=== PATIENT | female | born 1965 | race Caucasian/White ===

== ENCOUNTER 2021-06-13 09:32 | Emergency (ER) | payer OTHER, SELFPAY ==
--- NOTE | 2021-06-13 | ECG_ITS ---
Test Reason : CHEST PAIN Blood Pressure : / mmHG Vent. Rate : 088 BPM Atrial Rate : 088 BPM P-R Int : 144 ms QRS Dur : 082 ms QT Int : 358 ms P-R-T Axes : 016 009 109 degrees QTc Int : 433 ms Normal sinus rhythm Nonspecific T wave abnormality Abnormal ECG No previous ECGs available Referred By: Generic ED Physician Electronically Signed By:Rajeev Salvador
--- NOTE | ~2021-06-13 | XR_ITS ---
EXAMINATION: XR CHEST CLINICAL INFORMATION: Chest pain COMPARISON: None TECHNIQUE: 2 views of the chest were obtained. FINDINGS: The cardiac and mediastinal contours are normal. The lungs are clear. There is no pleural effusion or pneumothorax. There are degenerative changes of the spine. XR/XR chest 2V IMPRESSION: No evidence for acute disease in the chest.
[2021-06-13 09:34] VITALS: BP 195/89; PULSE 97; RESP 18; TEMP 36.9; O2SAT 98; BMI 41.5
--- NOTE | 2021-06-13 09:50 | ED_ITS ---
HPI - Arrhythmia/Palpitations General Chief Complaint: Arrhythmia/Palpitations Stated Complaint: rapid heart beat Time Seen by Provider: 06/13/21 09:50 Source: patient Mode of arrival: ambulatory Limitations: no limitations History of Present Illness HPI narrative: A 55-year-old female on no medications presents for palpitations that started last night at 02:00. Patient could not sleep, and felt her heart beating fast. She had no chest pain, no shortness of breath. She took ice and put it on her chest. She took a peppermint losenge and stated that that helped. Patient still feels palpitations now, states her heart does not feel regular. Stated she had the same symptoms 2 weeks ago with palpitations but also had chest pain at that time. She did not see a doctor at that time. States she has not had insurance for 4 years, and is just recently getting reestablished with a PCP who she has an appointment with September 09. She has never seen Cardiology. She states she lost her way coming here today. States patient's 2 weeks ago. 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 States these heart palpitations she had last night are the same as the palpitations she had when her . She is alert and oriented, and states she is supposed to a drive to [place] today for work. States she has a blood pressure cuff at home and her systolic blood pressure was 200 earlier today, usually it is 140. She is a former smoker, no alcohol use. Family history positive for coronary artery disease. States brother had heart surgery, and mother had stroke and [place]. No shortness of breath, no diaphoresis, no chest pain, patient is not on any blood pressure medication, no abdominal pain, no nausea, no vomiting, no diarrhea, no dysuria, no cough, no fever. MD complaint: heart racing and palpitations Onset (ago): hour(s) (9) Duration: now resolved (mostly) Severity: similar to previous episodes Context: occurred during rest Associated symptoms: denies other symptoms Related Data Allergies Allergy/AdvReac Type Severity Reaction Status Date / Time No Known Allergies Allergy Verified 06/13/21 09:34 [No Known Allergies*] Review of Systems Constitutional: Constitutional: Denies body ache(s), Denies chills, Denies fatigue, Denies fever(s), Denies headache(s), Denies malaise and Denies weakness Eyes: Eyes: Denies diplopia ENT: Denies dizziness, Denies otalgia, Denies headache(s) and Denies sore throat Cardiovascular: Cardiovascular: Denies chest pain, Denies chest pain at rest, Denies chest pain with activity, Denies Epigastric Pain, Denies syncope, Denies pedal edema, Denies claudication, Denies leg edema, Denies lightheadedness, Denies radiating jaw, neck or arm pain, Reports palpitations, Denies dyspnea, Denies dyspnea on exertion, Denies orthopnea and Denies paroxysmal nocturnal dyspnea Respiratory: Respiratory: Denies chest congestion, Denies cough, Denies dyspnea and Denies dyspnea on exertion Gastrointestinal: Gastrointestinal: Denies abdominal pain, Denies hematochezia, Denies constipation, Denies diarrhea and Denies vomiting Musculoskeletal: Musculoskeletal: Reports no additional musculoskeletal complaints Neurologic: Denies Abnormal speech present, Denies confusion, Denies dizzines s, Denies syncope, Denies headache(s), Denies Sensory deficit (Neuro) and Denies weakness Psychiatric: Psychiatric: Denies anxiety, Denies confusion and Denies depression Endocrine: Endocrine: Denies fatigue and Reports palpitations PMFSH Past Medical History Medical History (Updated 06/13/21 @ 12:37 by AMBERLY Rudolph) No known health problems Social History Social History Advance Directives: No Advance Directives Information Provided: Yes Physical Exam Vital Signs: Vital Signs: Last Vital Signs Temp 98.8 F 06/13/21 10:37 Pulse 84 06/13/21 10:37 Resp 18 06/13/21 10:37 BP 167/74 H 06/13/21 10:37 Pulse Ox 94 06/13/21 10:37 BMI result Body Mass Index 41.5 Const: General: No confusion Nutritional Appearance: well nourished Orientation/consciousness: patient oriented x3 and No confusion Limitations: no limitations HENMT: Head: Yes normal to inspection, Yes normocephalic and Yes atraumatic Ears: hearing grossly normal bilaterally and external ears normal General nose exam: Normal external nose present Face and sinus: Yes normal facial exam Mouth: Normal oral and palatal mucosa present Throat: Yes posterior oropharynx normal Eyes: Conjunctivae: conjunctivae normal Pupils: Equal, round and reactive pupils present EOM: EOMs intact bilaterally Neck: Neck: Yes full ROM, Yes no lymphadenopathy and Yes supple Resp: Effort & Inspection: normal respiratory effort and able to speak in complete sentences Auscultation: clear to auscultation bilaterally, no crackles, no rales, no rhonchi and no wheezes Cardio: Rate: regular rate Rhythm: regular rhythm Heart sounds: S1 normal heart sound present and S2 normal heart sound present GI: Inspection: Yes normal to inspection Palpation (GI): Soft to palpation, nontender, no guarding and not rigid Percussion: Yes normal to percussion Auscultation: normal bowel sounds Skin: General skin exam: no rashes or lesions noted Neuro: General: patient oriented x3 and No confusion Cranial nerves: Yes CN's II-XII intact bilaterally, Yes Facial sensation intact/muscles of mastication intact, Yes Equal, round and reactive pupils present, Yes Bilat erally intact EOM present, Yes Nystagmus not present, Yes Normal facial strength present, Yes Midline tongue present, Yes Ability to bilaterally rotate head present and Yes Ability to bilaterally elevate shoulders present Cognition (Neuro): normal cognition Speech: No Abnormal speech present Gait exam (Neuro): Normal gait present Motor exam (neuro): 5/5 motor strength present throughout Sensory Exam: No Sensory deficit (Neuro) Extrem: Other: right calf tender to palpation, not red, swollen, or warm Psych: Appearance: grossly normal Affect: normal affect Attitude: cooperative Thought process: Normal thought process present Course Course Course Narrative: 55-year-old female presents for palpitations that have mostly resolved that occurred last night. Patient is grieving the of her 2 weeks ago. On exam, patient is initially hypertensive 195/89, repeat blood pressure 167/74. Patient is anxious and tearful. EKG shows normal sinus at a rate of 88 while patient is endorsing mild palpitations. Will get troponin, chest x-ray, labs, COVID, TSH, urine, will get D-dimer to evaluate right leg cramping, low suspicion for DVT. Reevaluation(s) Reevaluation #1: Patient has been in normal sinus since she has been in the emergency room. Troponin 5.1, chest x-ray negative, D-dimer negative, TSH is normal, COVID negative, white chemistry and hematology normal. No anemia, no hyperthyroidism. No syncope associated with these palpitations Discussed with patient that I will refer her to Cardiology she has not established primary care yet, cardiology he can work her up further for her palpitations and may want her to wear a Holter monitor. Gave patient cardiology number to call, gave return precautions of worsening chest pain, shortness of breath, nausea, patient verbalized agreement understanding plan. MDM - Arrhythmia/Palpitations Differential Diagnosis Differential diagnosis: Likely palpitations, anxiety, sinus tachycardia and artial fibrillation Medical Records Attestation: I reviewed the patient's medical records. Lab Data Attestation: I reviewed the patient's lab results. Result diagrams: 06/13/21 10:36 06/13/21 10:36 Labs: Lab Results 06/13/21 06/13/21 06/13/21 Range/Units 10:36 10:36 10:36 WBC 7.9 (4.8-10.8) X10*3/uL RBC 4.93 (4.20-5.50) X10*6/uL Hgb 14.2 (12.0-16.0) g/dl Hct 44.4 (37.0-47.0) % MCV 90.1 (80.0-98.0) fL MCH 28.8 (27.0-33.0) pg MCHC 32.0 (31.0-35.0) g/dl RDW 13.5 (11.0-16.0) % Plt Count 282 (160-400) X10*3/uL MPV 10.6 (9.4-12.3) fL Immature Gran % (Auto) 0.3 (0.0-0.4) % Neut % (Auto) 67.4 (45-73) % Lymph % (Auto) 24.6 (20-40) % Sibley % (Auto) 6.4 (2-11) % Eos % (Auto) 0.8 (0-4) % Baso % (Auto) 0.5 (0-2) % Lymph # (Auto) 1.9 (1.2-4.9) X10*3/uL [place] # (Auto) 0.5 (0.1-1.2) X10*3/uL Eos # (Auto) 0.1 (0.0-0.4) X10*3/uL Baso # (Auto) 0.0 (0.0-0.2) X10*3/uL Abs Immat Gran (auto) 0.02 (0.00-0.03) X10*3/uL Absolute Neuts (auto) 5.3 (2.0-8.3) x10*3/uL Absolute Nucleated RBC 0.000 (0.0-0.012) X10*3/uL Nucleated RBC % (auto) 0.0 (0.0-0.2) /100WBC D-Dimer High Sensitivty < 150 NG/ML Sodium 140 (135-145) mmol/L Potassium 4.8 (3.3-5.1) mmol/L Chloride 106 (96-108) mmol/L Carbon Dioxide 26 (22-29) mmol/L Anion Gap 13 (12-20) BUN 17 H (9-16) mg/dL Creatinine 0.66 (0.5-1.4) mg/dL Estim Creat Clear Calc 104.2 Estimated GFR > 60 Random Glucose 102 (60-115) mg/dL Calcium 10.1 (8.4-10.2) mg/dL Total Bilirubin 0.4 (0.0-1.0) mg/dL AST 18 (5-31) U/L ALT 29 (0-31) U/L Alkaline Phosphatase 79 (39-117) U/L Troponin I High Sens (<3.5-17.0) ng/L Total Protein 7.0 (6.5-8.0) g/dL Albumin 4.3 (3.5-5.0) g/dL TSH 0.96 (0.32-4.0) uIU/mL COVID-19 ([facility]) (Negative) COVID-19 Clin Com 06/13/21 06/13/21 Range/Units 10:36 10:37 WBC (4.8-10.8) X10*3/uL RBC (4.20-5.50) X10*6/uL Hgb (12.0-16.0) g/dl Hct (37.0-47.0) % MCV (80.0-98.0) fL MCH (27.0-33.0) pg MCHC (31.0-35.0) g/dl RDW (11.0-16.0) % Plt Count (160-400) X10*3/uL MPV (9.4-12.3) fL Immature Gran % (Auto) (0.0-0.4) % Neut % (Auto) (45-73) % Lymph % (Auto) (20-40) % Sibley % (Auto) (2-11) % Eos % (Auto) (0-4) % Baso % (Auto) (0-2) % Lymph # (Auto) (1.2-4.9) X10*3/uL [place]y # (Auto) (0.1-1.2) X10*3/uL Eos # (Auto) (0.0-0.4) X10*3/uL Baso # (Auto) (0.0-0.2) X10*3/uL Abs Immat Gran (auto) (0.00-0.03) X10*3/uL Absolute Neuts (auto) (2.0-8.3) x10*3/uL Absolute Nucleated RBC (0.0-0.012) X10*3/uL Nucleated RBC % (auto) (0.0-0.2) /100WBC D-Dimer High Sensitivty NG/ML Sodium (135-145) mmol/L Potassium (3.3-5.1) mmol/L Chloride (96-108) mmol/L Carbon Dioxide (22-29) mmol/L Anion Gap (12-20) BUN (9-16) mg/dL Creatinine (0.5-1.4) mg/dL Estim Creat Clear Calc Estimated GFR Random Glucose (60-115) mg/dL Calcium (8.4-10.2) mg/dL Total Bilirubin (0.0-1.0) mg/dL AST (5-31) U/L ALT (0-31) U/L Alkaline Phosphatase (39-117) U/L Troponin I High Sens 5.1 (<3.5-17.0) ng/L Total Protein (6.5-8.0) g/dL Albumin (3.5-5.0) g/dL TSH (0.32-4.0) uIU/mL COVID-19 ([facility]) Negative (Negative) COVID-19 Clin Com See Note ECG Data Interpretation: Normal sinus at a rate of 88, AR 144, QRS 82, QTC 433, normal axis, no ST depressions or elevations, nonspecific T-wave abnormality Discharge Plan Discharge Clinical Impression: Palpitations Patient Disposition: Home, Self-Care Instructions: Heart Palpitations (ED) Additional Instructions: Please call cardiology at [phone] for an appointment to evaluate your heart palpitations. If you have worsening palpitations, chest pain, shortness of breath, nausea vomiting, or any other new or concerning symptoms, please return to the emergency room. Referrals: Rajeev Salvador MD [Physician] - 2 days
[2021-06-13 10:37] VITALS: BP 167/74; PULSE 84; RESP 18; TEMP 37.1; O2SAT 94
[2021-06-13 10:48] LABS: MANUAL DIFF FLAG NO
[2021-06-13 10:52] LABS: Basophils Percent Auto 0.5 % (0-2); Eosinophils Absolute Auto 0.1 X10*3/uL (0.0-0.4); Eosinophils Percent Auto 0.8 % (0-4); Hematocrit 44.4 % (37.0-47.0); Hemoglobin 14.2 g/dl (12.0-16.0); Imm Gran Abs Auto 0.02 X10*3/uL (0.00-0.03); Imm Gran Pct Auto 0.3 % (0.0-0.4); Lymphocytes Absolute Auto 1.9 X10*3/uL (1.2-4.9); Lymphocytes Percent Auto 24.6 % (20-40); Mean Corpuscular Hemoglobin 28.8 pg (27.0-33.0); Mean Corpuscular Volume 90.1 fL (80.0-98.0); Mean Platelet Volume 10.6 fL (9.4-12.3); Monocytes Absolute Auto 0.5 X10*3/uL (0.1-1.2); Monocytes Percent Auto 6.4 % (2-11); Neutrophils Absolute Auto 5.3 x10*3/uL (2.0-8.3); Neutrophils Percent Auto 67.4 % (45-73); Platelet Count 282 X10*3/uL (160-400); Red Blood Count 4.93 X10*6/uL (4.20-5.50); Red Cell Distribution Width 13.5 % (11.0-16.0); White Blood Count 7.9 X10*3/uL (4.8-10.8)
[2021-06-13 10:57] LABS: D Dimer High Sensitivity < 150 NG/ML
[2021-06-13 11:03] LABS: Alanine Aminotransferase 29 U/L (0-31); Albumin Level 4.3 g/dL (3.5-5.0); Alkaline Phosphatase 79 U/L (39-117); Anion Gap 13 (12-20); Aspartate Amino Transferase 18 U/L (5-31); Bilirubin Total 0.4 mg/dL (0.0-1.0); Blood Urea Nitrogen 17 mg/dL (9-16); Calcium 10.1 mg/dL (8.4-10.2); Carbon Dioxide 26 mmol/L (22-29); Chloride 106 mmol/L (96-108); Creatinine Clr Calc Pharmacy 104.2; Estimated Glomerular Filt Rate > 60; Glucose Random 102 mg/dL (60-115); Potassium 4.8 mmol/L (3.3-5.1); Sodium 140 mmol/L (135-145)
[2021-06-13 11:08] LABS: Troponin-I High Sensitivity 5.1 ng/L (<3.5-17.0)
[2021-06-13 11:11] LABS: COVID-19 Test Negative (Negative)
[2021-06-13 12:05] LABS: Thyroid Stimulating Hormone 0.96 uIU/mL (0.32-4.0)
== END 2021-06-13 13:14 | disposition home or self-care (01) ==
PROVIDERS: Physician Assistant; Emergency Provider Emergency Medicine Emergency Medical Services
DX: R00.2 Palpitations (principal); I10 Essential (primary) hypertension; F41.9 Anxiety disorder, unspecified; Z20.822 Contact with and (suspected) exposure to COVID-19; M79.661 Pain in right lower leg; Z72.89 Other problems related to lifestyle; Z63.4 Disappearance and death of family member
CPT/HCPCS: 71046; 80053; 84443; 84484; 85025; 85379; 87635; 93005; 99284

== ENCOUNTER → 2021-07-01 13:55 | Outpatient (BNVA) | payer OTHER, SELFPAY | PROVIDERS: Referring Provider Nurse Practitioner Family; Visit Provider Internal Medicine | DX: I10 Essential (primary) hypertension (principal) | CPT/HCPCS: 93005; 99202 ==

== ENCOUNTER → 2021-07-03 08:47 | Outpatient (REF) | payer OTHER, SELFPAY ==
--- NOTE | 2021-07-03 08:51 | CA_ITS ---
Transthoracic Echocardiogram Patient (Last, First, Middle): Gina Britton, Gender: Female Date of : 1965 Age: 55 Procedure Date: 07/03/2021 Procedure Type: Transthoracic Echocardiogram Location: OP Height: 154.94 cm Weight: 90.72 kg BSA: 1.89 m2 Heart Rate: bpm BP: 140 / 90 mmHg Restaurant Floor Manager: LEI Pierre MD: Brad Perez MD Adult Neurologist: Jason Colin MD Symptoms: I10 - Essential (primary) hypertension Study Quality: Fair ECG Rhythm: Sinus Conclusions: - 1. Normal LV systolic and diastolic function 2. Fibrocalcific aortic valve changes noted with normal cardiac valvular Doppler 3. Normal RV systolic pressure 4. No pericardial effusion Findings Left Ventricle Normal left ventricular size, thickness, and systolic function. The visually estimated ejection fraction is between 55-60%. Spectral Doppler is indicative of a normal filling pattern. There is mild septal asymmetric hypertrophy. Right Ventricle Normal right ventricular cavity size and systolic function. Atria The left atrium is normal in size. There is no evidence of interatrial shunt. The right atrium is normal in size. Aortic Valve There is mild calcification of the aortic valve. There is mild thickening of the aortic valve. There is no aortic valve stenosis. There is no aortic valve regurgitation. Mitral Valve There is mild anterior and posterior mitral leaflet thickening. There is trace mitral valve regurgitation. There is no mitral valve stenosis. Pulmonic Valve The pulmonic valve was not well visualized. Tricuspid Valve Normal tricuspid valve structure. There is trace tricuspid valve regurgitation. The right ventricular systolic pressure is normal. The right ventricular systolic pressure is 14 mmHg. Normal right atrial pressure. There is no evidence of pulmonary hypertension. Great Vessels All visible segments of the aorta are normal in size. The pulmonary artery was not well visualized. Venous The inferior vena cava is normal in size and collapses greater than 50% with inspiration. Pericardium/Pleural There is no evidence of pericardial effusion. Prior Study Comparison No prior study available for comparison. Measurements 2D Linear Measurements IVSd: 1.20 0.6-0.9/0.6-1.0 cm LVIDd: 4.54 3.9-5.3/4.2-5.9 cm LVIDd Index: 2.40 2.4-3.2/2.2-3.1 cm/m2 LVIDs: 3.18 2.0-3.6 cm LVPWd: 1.04 0.7-1.1 cm LA Diam: 3.90 2.7-3.8/3.0-4.0 cm LAIDs Index: 2.06 1.5-2.3 cm/m2 LV Mass: 226.81 67-162/88-224 g LV Mass Index: 120.01 43-95/49-115 g/m2 LVOT Diam: 2.00 3.0+(-)1.3 cm 2D Systolic Function EF 4C: 58.30 >55% EF 2C: 59.30 >55% EF BiP: 57.70 >55% Mitral Valve MV Pk E: 0.72 MV PK A: 0.57 MV Decel Time: 208.00 E/A: 1.30 E'Lateral: 8.70 E'Medial: 5.98 E/E' Med: 12.10 E/E' Lat: 8.30 PHT: 61.00 MVA PHT: 3.61 Decel [place]: 3.49 Aortic Valve AoV Pk Yosef: 1.33 AoV Mn Yosef: 0.95 AoV VTI: 0.27 AoV Pk Grad: 7.00 Aov Mn Grad: 4.00 ESTEBAN Cont.VTI: 2.36 LVOT LVOT Pk Yosef: 0.99 LVOT Mn Yosef: 0.65 LVOT VTI: 0.21 LVOT Pk Grad: 4.00 LVOT Mn Grad: 2.00 LVOT Diam: 2.00 LVOT Area: 3.14 Diastolic Function MV Pk E: 0.72 MV Pk A: 0.57 E/A: 1.30 E'Medial: 5.98 E/E' Med: 12.10 E' Laterial: 8.70 E/E' Lat: 8.30 Right Ventricle TAPSE (mm): 24.00 TVS' Yosef: 12.20 Tricuspid Valve TR Pk Yosef: 1.67 TR Pk Grad: 11.00 RA Press: 3.00 RVSP: 14.00 Great Vessels Aorta Ao Asc: 3.40 2.1-3.4 cm Ao Arch: 3.20 Updated in Other Vendor System with Status of Final Jason Colin MD electronically signed on 07/03/2021 9:40:56 AM with status of Final
== END ==
LOC: HO.CARD 08:47
PROVIDERS: Visit Provider Internal Medicine
DX: I10 Essential (primary) hypertension (principal)
CPT/HCPCS: 93306

== ENCOUNTER 2021-07-03 09:26 | Emergency (ER) | payer OTHER, SELFPAY ==
[2021-07-03 09:31] VITALS: BP 152/76; PULSE 67; RESP 18; TEMP 36.7; O2SAT 98; BMI 40.6
--- NOTE | 2021-07-03 09:36 | ECG_ITS ---
Test Reason : side pain Blood Pressure : / mmHG Vent. Rate : 062 BPM Atrial Rate : 062 BPM P-R Int : 182 ms QRS Dur : 086 ms QT Int : 414 ms P-R-T Axes : 017 008 054 degrees QTc Int : 420 ms Normal sinus rhythm Normal ECG When compared with ECG of 13-JUN-2021 09:44, Nonspecific T wave abnormality, improved in Inferior leads Referred By: Generic ED Physician Electronically Signed By:Rajeev Salvador
[2021-07-03 10:03] LABS: MANUAL DIFF FLAG NO
[2021-07-03 10:06] LABS: Basophils Percent Auto 0.7 % (0-2); Eosinophils Absolute Auto 0.1 X10*3/uL (0.0-0.4); Eosinophils Percent Auto 1.5 % (0-4); Hematocrit 41.5 % (37.0-47.0); Hemoglobin 13.6 g/dl (12.0-16.0); Imm Gran Abs Auto 0.01 X10*3/uL (0.00-0.03); Imm Gran Pct Auto 0.2 % (0.0-0.4); Lymphocytes Absolute Auto 1.5 X10*3/uL (1.2-4.9); Lymphocytes Percent Auto 27.5 % (20-40); Mean Corpuscular HGB Conc 32.8 g/dl (31.0-35.0); Mean Corpuscular Hemoglobin 29.1 pg (27.0-33.0); Mean Corpuscular Volume 88.7 fL (80.0-98.0); Mean Platelet Volume 10.4 fL (9.4-12.3); Monocytes Absolute Auto 0.4 X10*3/uL (0.1-1.2); Monocytes Percent Auto 7.9 % (2-11); Neutrophils Absolute Auto 3.4 x10*3/uL (2.0-8.3); Neutrophils Percent Auto 62.2 % (45-73); Platelet Count 246 X10*3/uL (160-400); Red Blood Count 4.68 X10*6/uL (4.20-5.50); Red Cell Distribution Width 13.1 % (11.0-16.0); White Blood Count 5.5 X10*3/uL (4.8-10.8)
[2021-07-03] MEDS: Metoclopramide HCl 10 MG/2 ML VIAL IVPUSH (11:14)
[2021-07-03] MEDS: Meclizine HCl 25 MG TABLET PO (11:14)
[2021-07-03] MEDS: diphenhydrAMINE HCL 50 MG/ML VIAL 12.5 MG IVPUSH (11:14)
[2021-07-03] MEDS: 0.9 % Sodium Chloride 1,000 ML 999 ML IV (11:15)
[2021-07-03 11:19] LABS: Alanine Aminotransferase 26 U/L (0-31); Alkaline Phosphatase 70 U/L (39-117); Anion Gap 11 (12-20); Aspartate Amino Transferase 16 U/L (5-31); Bilirubin Total 0.8 mg/dL (0.0-1.0); Blood Urea Nitrogen 16 mg/dL (9-16); Calcium 9.4 mg/dL (8.4-10.2); Carbon Dioxide 28 mmol/L (22-29); Chloride 105 mmol/L (96-108); Creatinine Clr Calc Pharmacy 102.9; Estimated Glomerular Filt Rate > 60; Glucose Random 96 mg/dL (60-115); Magnesium 2.1 mg/dL (1.6-2.6); Potassium 4.2 mmol/L (3.3-5.1); Sodium 140 mmol/L (135-145); Total Protein 6.3 g/dL (6.5-8.0)
--- NOTE | 2021-07-03 11:57 | ED.DIZZY ---
HPI - Dizziness General Chief Complaint: Dizziness Stated Complaint: dizzy Time Seen by Provider: 07/03/21 10:07 Source: patient Mode of arrival: ambulatory History of Present Illness HPI Narrative: 55-year-old female with a past medical history of vertigo, uncontrolled hypertension newly started on Amlodipine 3 days ago presenting to the ED complaining of room spinning dizziness since last night worse with position changes and head movement, resolved when lying still. Also reports constant headache x1 month, not maximal in onset. Denies taking anticoagulation. Admits symptoms are similar to prior dizziness in the past. Reports compliance with new medications. Denies vision change/loss, CP/SOB, numbness, tingling, weakness, fever, recent illness, abdominal pain, nausea/vomiting MD elicited complaint: dizziness Onset (ago): day(s) Related Data Previous Rx's Medication Instructions Recorded amlodipine 5 mg tablet 5 mg PO DAILY #90 tab 07/01/21 meclizine 25 mg tablet 25 mg PO TID PRN #14 tab 07/03/21 Allergies Allergy/AdvReac Type Severity Reaction Status Date / Time No Known Allergies Allergy Verified 07/03/21 09:31 [No Known Allergies*] Review of Systems Review of Systems: Constitutional: No Fever, No Chills, No Fatigue, No Malaise ENT/Mouth: No Ear Pain, No Nasal Congestion, No sore throat, No Rhinorrhea, No Swallowing Difficulty Eyes: No Eye Pain, No Swelling, No Redness, No Vision Changes Cardiovascular: No Chest Pain, No SOB, No Dyspnea on Exertion, No Edema, No Palpitations Respiratory: No Cough, No Sputum, No Wheezing, No Dyspnea Gastrointestinal: No Nausea, No Vomiting, No Diarrhea, No Constipation, No Abdominal pain Genitourinary: No Dysuria, No Hematuria, No Urgency, No Flank Pain Musculoskeletal: No joint pain, No Myalgias, No Joint Swelling Skin: No Skin Lesions, No rash Neuro: No Weakness, No Numbness, No Paresthesias, No Loss of Consciousness, + Dizziness, + Headache Yes all other systems are reviewed and are negative Neurologic: Denies Abnormal speech present [facility] Past Medical History Attestation statement: The following information was validated with the patient. Medical History No known health problems Uncontrolled hypertension Surgical History No pertinent past surgical history Family History Family History Father No problems noted. Mother Heart disease Social History Social History Patient Tobacco Use Status: Current someday Tobacco user Advance Directives: No Advance Directives Information Provided: No Physical Exam Vital Signs: Vital Signs: Last Vital Signs Temp 98.0 F 07/03/21 09:31 Pulse 73 07/03/21 13:03 Resp 18 07/03/21 09:31 BP 165/103 H 07/03/21 13:03 Pulse Ox 98 07/03/21 09:31 BMI result Body Mass Index 40.6 Const: General: cooperative, healthy appearing, no acute distress, alert and awake Orientation/consciousness: patient oriented x3 Limitations: no limitations HENMT: Head: Yes normal to inspection and Yes atraumatic Ears: hearing grossly normal bilaterally General nose exam: Normal external nose present Face and sinus: Yes normal facial exam Throat: Yes posterior oropharynx normal Eyes: General: appearance normal, both eyes and all related structures EOM: EOMs intact bilaterally and Nystagmus present Neck: Neck: Yes normal visual inspection and Yes no meningeal signs Resp: Effort & Inspection: normal respiratory effort Auscultation: clear to auscultation bilaterally, no rales, no rhonchi and no wheezes Cardio: Rate: regular rate Heart sounds: S1 normal heart sound present and S2 normal heart sound present GI: Inspection: Yes normal to inspection Palpation (GI): Soft to palpation, nontender, no guarding and not rigid : General: Yes no CVA tenderness Back/Spine/Pelvis: Back: no CVA tenderness Skin: Rashes: no rashes Wounds: no wounds Neuro: General: patient oriented x3, gait normal, tone normal, moves all extremities, no meningeal signs, no focal motor deficits and CN's II-XI intact bilaterally Cranial nerves: Yes CN's II-XII intact bilaterally and Yes Nystagmus present horizontal fast component to the right Cognition (Neuro): normal cognition Speech: No Abnormal speech present Gait exam (Neuro): Normal gait present and not ataxic Motor exam (neuro): 5/5 motor strength present throughout, Pronator motor function not present and no tremor noted Coordination: [id number] test normal Romberg Test: Negative Extrem: General: Yes normal to inspection and Yes no pedal edema Course Course Course Narrative: -1250--labs unremarkable. On re-evaluation patient reports symptomatic improvement, denies dizziness at present. -orthostatic vital signs negative. Discussed worrisome signs and symptoms and strict return precautions and close follow-up with PCP with patient. She verbalized understanding and feels safe for discharge home at this time MDM - Dizziness MDM Narrative Medical decision making narrative: 55-year-old female with a past medical history of vertigo, uncontrolled hypertension newly started on Amlodipine 3 days ago presenting to the ED complaining of room spinning dizziness since last night worse with position changes and head movement, resolved when lying still. Also reports constant headache x1 month, not maximal in onset. On exam vital signs stable, NAD/not toxic, no focal neuro deficits, ambulating with steady gait. Horizontal nystagmus noted. Concern for BPPV/vertigo. Unlikely SAH/central causes of vertigo. Unlikely hypertensive urgency/emergency Plan: EKG, labs, UA, orthostatics, IVF, symptomatic treatment, re-evaluate Medical Records Attestation: I reviewed the patient's medical records. Lab Data Attestation: I reviewed the patient's lab results. Result diagrams: 07/03/21 09:57 07/03/21 10:59 Labs: Lab Results 07/03/21 07/03/21 07/03/21 Range/Units 09:57 10:59 13:07 WBC 5.5 (4.8-10.8) X10*3/uL RBC 4.68 (4.20-5.50) X10*6/uL Hgb 13.6 (12.0-16.0) g/dl Hct 41.5 (37.0-47.0) % MCV 88.7 (80.0-98.0) fL MCH 29.1 (27.0-33.0) pg MCHC 32.8 (31.0-35.0) g/dl RDW 13.1 (11.0-16.0) % Plt Count 246 (160-400) X10*3/uL MPV 10.4 (9.4-12.3) fL Immature Gran % (Auto) 0.2 (0.0-0.4) % Neut % (Auto) 62.2 (45-73) % Lymph % (Auto) 27.5 (20-40) % [place] % (Auto) 7.9 (2-11) % Eos % (Auto) 1.5 (0-4) % Baso % (Auto) 0.7 (0-2) % Lymph # (Auto) 1.5 (1.2-4.9) X10*3/uL [place] # (Auto) 0.4 (0.1-1.2) X10*3/uL Eos # (Auto) 0.1 (0.0-0.4) X10*3/uL Baso # (Auto) 0.0 (0.0-0.2) X10*3/uL Abs Immat Gran (auto) 0.01 (0.00-0.03) X10*3/uL Absolute Neuts (auto) 3.4 (2.0-8.3) x10*3/uL Absolute Nucleated RBC 0.000 (0.0-0.012) X10*3/uL Nucleated RBC % (auto) 0.0 (0.0-0.2) /100WBC Sodium 140 (135-145) mmol/L Potassium 4.2 (3.3-5.1) mmol/L Chloride 105 (96-108) mmol/L Carbon Dioxide 28 (22-29) mmol/L Anion Gap 11 L (12-20) BUN 16 (9-16) mg/dL Creatinine 0.66 (0.5-1.4) mg/dL Estim Creat Clear Calc 102.9 Estimated GFR > 60 Random Glucose 96 (60-115) mg/dL Calcium 9.4 D (8.4-10.2) mg/dL Magnesium 2.1 (1.6-2.6) mg/dL Total Bilirubin 0.8 (0.0-1.0) mg/dL AST 16 (5-31) U/L ALT 26 (0-31) U/L Alkaline Phosphatase 70 (39-117) U/L Total Protein 6.3 L (6.5-8.0) g/dL Albumin 4.0 (3.5-5.0) g/dL Urine Color YELLOW Urine Appearance HAZY Urine pH 6.0 (5.0-8.0) Ur Specific [place] 1.010 (1.005-1.025) Urine Protein NEG (NEG-TRACE) MG/DL Urine Glucose (UA) NEG (NEG) MG/DL Urine Ketones NEG (NEG) MG/DL Urine Blood 1+ H (NEG) Urine Nitrite NEG (NEG) Ur Leukocyte Esterase 1+ H (NEG) Discharge Plan Discharge Clinical Impression: Benign paroxysmal positional vertigo Patient Disposition: Home, Self-Care Instructions: Benign Paroxysmal Positional Vertigo (ED) Additional Instructions: Your blood work was reassuring today in the emergency department. Meclizine will help with dizziness, take as needed. If you develop constant or worsening dizziness, persistent or worsening headache, change in headache, weakness, vision change or loss please return to the ED Prescriptions: New meclizine 25 mg tablet 25 mg PO TID PRN (Reason: dizziness) Qty: 14 0RF No Action amlodipine 5 mg tablet 5 mg PO DAILY Qty: 90 3RF Referrals: Bianka Peace PA [Primary Care Provider] - 2 days Wiliam Orellana [Physician] - 5 days
--- NOTE | 2021-07-03 12:10 | PC.NURSE ---
pt states some improvement, amb to br with steady gait
[2021-07-03 12:59] VITALS: BP 149/79; PULSE 62
[2021-07-03 13:01] VITALS: BP 158/92; PULSE 66
[2021-07-03 13:03] VITALS: BP 165/103; PULSE 73
[2021-07-03 13:15] LABS: Appearance Urine HAZY; Color Urine YELLOW; Glucose Urine UA NEG (NEG); Leukocyte Esterase Urine 1+ (NEG); Nitrite Urine NEG (NEG); UACC Culture Trigger YES; Urine Blood 1+ (NEG); Urine Ketones NEG (NEG); Urine Protein NEG (NEG-TRACE)
[2021-07-03 13:24] LABS: Bacteria Urine 1+ /LPF; RBC Urine 0-2 /HPF (0); Squamous Epithelial Cell Urine 2+ /LPF
[2021-07-03 13:30] VITALS: BP 129/77
== END 2021-07-03 13:45 | disposition home or self-care (01) ==
PROVIDERS: Physician Assistant; Emergency Provider Emergency Medicine; PCP Physician Assistant
DX: H81.10 Benign paroxysmal vertigo, unspecified ear (principal); R51.9 Headache, unspecified; I10 Essential (primary) hypertension; F17.200 Nicotine dependence, unspecified, uncomplicated
CPT/HCPCS: 36415; 80053; 81001; 83735; 85025; 87086; 93005; 96361; 96374; 96375; 99283; 99284; J1200; J2765

== ENCOUNTER → 2021-07-30 13:27 | Outpatient (BNVA) | payer OTHER, SELFPAY | PROVIDERS: PCP Physician Assistant; Visit Provider Nurse Practitioner Family | DX: I10 Essential (primary) hypertension (principal) | CPT/HCPCS: 99212 ==

== ENCOUNTER → 2022-03-11 15:01 | Outpatient (BNVA) | payer OTHER, SELFPAY | PROVIDERS: PCP Physician Assistant; Visit Provider Nurse Practitioner Family | DX: R00.2 Palpitations (principal); R06.02 Shortness of breath; R07.89 Other chest pain; I10 Essential (primary) hypertension; E66.01 Morbid (severe) obesity due to excess calories; Z68.41 Body mass index [BMI] 40.0-44.9, adult | CPT/HCPCS: 99212 ==

== ENCOUNTER → 2022-04-29 09:09 | Outpatient (REF) | payer OTHER, SELFPAY ==
--- NOTE | 2022-04-29 09:12 | CA_ITS ---
Acquisition Time: 2022-04-29 09:31:29 Total Exercise Time: 00:05:31 Test Indications: shortness of breath Medications: Protocol: GHAZAL Max HR: 226 BPM 137% of Pred: 164 BPM Max BP: 174/088 mmHG Max Work Load: 7.0 METS Exercise stress test with exercise 5 min 31 sec of Ghazal protocol, achieving 90% MPHR, without anginal symptoms, with isolated PACs, with normotensive response to exercise, without ST depression, with T wave inversions inferiolry and V4-V6 which are present throughout test. Leads adjusted to a usual 12 lead set up and T wave inversions inferiorly corrected but still has T wave inversions V4-V6 which is different from 07/03/21 EKG. Will order a exercise nuclear stress test for further evaluation. Test reviewed with Dr Colin Referred By: Teresa Anand Overread By: TERESA ANAND
== END ==
LOC: HO.CARD 09:09
PROVIDERS: PCP Physician Assistant; Visit Provider Nurse Practitioner Family
DX: R07.89 Other chest pain (principal); R06.02 Shortness of breath; I10 Essential (primary) hypertension
CPT/HCPCS: 93017

== ENCOUNTER → 2022-06-19 13:08 | Outpatient (REF) | payer OTHER, SELFPAY ==
--- NOTE | 2022-06-19 13:11 | HM_ITS ---
Conclusion: 1. Patient was monitored for total period of 2 days 2. Baseline was normal sinus rhythm with average heart rate of 81 beats per minute 3. No significant pauses or bradycardia noted 4. Very rare PACs noted 5. No patient reported events MTDD
== END ==
LOC: HO.CARD 13:08
PROVIDERS: PCP Physician Assistant; Visit Provider Nurse Practitioner Family
DX: R07.89 Other chest pain (principal); R06.02 Shortness of breath; R00.2 Palpitations; R94.39 Abnormal result of other cardiovascular function study
CPT/HCPCS: 93225

== ENCOUNTER → 2022-06-29 08:08 | Outpatient (REF) | payer OTHER, SELFPAY ==
--- NOTE | ~2022-06-29 | NM_ITS ---
Exercise Myocardial perfusion study Indication: Abnormal stress test evaluate for myocardial ischemia Technique: The patient was brought in for an exercise perfusion study on 06/29/2022. Patient performed exercise as per Koffi protocol and was injected 30 mCi of sestamibi was given intravenously one target HR was achieved. Images were obtained using the SPECT gamma camera interlaced with the gating device. Images were obtained in supine position. Resting perfusion study was performed on 07/03/2022. Patient was administered 30 mCi of sestamibi intravenously at rest. Images were then obtained in supine position. Images obtained with and without CT attenuation. Total DLP 139 mGy-cm. Images were processed with the software and compared side to side in short axis, horizontal long axis and vertical long axis views. Findings: The stress perfusion study showed non attenuated images show normal uptake of radiotracer in all segments of LV myocardium. Attenuation corrected images show mildly reduced uptake in the apex of the LV myocardium. The gated study shows normal LV systolic function with calculated LVEF of 72%. LV cavity is normal in size. The gated study shows normal systolic wall thickening and contraction of all segments. There is no transient ischemic dilation. Resting study shows no changes in perfusion compared to stress perfusion study. Gating at rest reveals normal systolic wall motion with ejection fraction at 63%. The findings are consistent with normal myocardial perfusion. NM/NM cardiolite stress test Impression: 1. Normal myocardial perfusion 2. Gated LVEF is 72% 3. Transient ischemic dilatation not present Stress EKG is negative for ischemia
--- NOTE | 2022-06-29 08:11 | CA_ITS ---
Acquisition Time: 2022-06-29 08:18:31 Total Exercise Time: 00:05:53 Test Indications: CP, SOB Medications: SEE CHART Protocol: GHAZAL Max HR: 151 BPM 92% of Pred: 164 BPM Max BP: 220/070 mmHG Max Work Load: 7.0 METS ERxercise stress test using Ghazal protocol, total of 5 min 53 sec, METS 7.00, and TAPHR up to 92 %. EKG with occasional PVC's and T wave inversion in leads 2,3 and aVF. No ischemic changes seen, nuclear images to follow, Hypertensive response to exercise. Pt denied SOB or CP during exercisse. Test reviewed with Dr. Colin. Referred By: Teresa Anand Overread By: Karyna Grissom NP
== END ==
LOC: HO.CARD 08:08
PROVIDERS: PCP Physician Assistant; Visit Provider Nurse Practitioner Family
DX: R07.89 Other chest pain (principal); R06.02 Shortness of breath; R94.39 Abnormal result of other cardiovascular function study
CPT/HCPCS: 78452; 93017; A9500

== ENCOUNTER → 2022-09-08 12:50 | Outpatient (BNVA) | payer MEDICAID, SELFPAY | PROVIDERS: PCP Physician Assistant; Visit Provider Nurse Practitioner Family | DX: R00.2 Palpitations (principal); R07.89 Other chest pain; I10 Essential (primary) hypertension | CPT/HCPCS: 93005; 99212 ==

== ENCOUNTER 2024-01-25 11:49 | Emergency (ER) | payer MEDICAID, SELFPAY ==
--- NOTE | ~2024-01-25 | XR_ITS ---
EXAMINATION: XR CHEST CLINICAL INFORMATION: Shortness of breath COMPARISON: 06/13/2021 TECHNIQUE: 2 views of the chest were obtained. FINDINGS: Low lung volumes are present likely contributing to prominent vascularity and bibasilar atelectasis. No consolidations. Heart and mediastinum within normal limits. Thoracic flowing osteophytes. XR/XR chest 2V IMPRESSION: Low lung volumes, bibasilar atelectasis. Vascular crowding, mild failure not excluded. Electronically signed by: Nanette Chairez MD 01/25/2024 01:42 PM EDT
[2024-01-25 12:02] VITALS: BP 155/81; PULSE 102; RESP 20; O2SAT 87; BMI 43.5
--- NOTE | 2024-01-25 12:14 | ED_ITS ---
HPI - General Adult General Chief complaint: General Medical Stated complaint: Allergic reaction? Time Seen by Provider: 01/25/24 19:07 Source: patient and family Mode of arrival: ambulatory Limitations: no limitations History of Present Illness ED Provider: Dr. Blaine Doyle HPI narrative: 58-year-old female with a history of hypertension who presents emergency department for evaluation of nausea and feeling off balance. She states that around 11:00 while she was eating bread, she was and pesto she had a sudden feeling of being off balance. She states that since that time she has had episodes of feeling off balance which are usually triggered with change in head position. She did have associated nausea with no vomiting. She denied any change in her vision, numbness or weakness. She states that when she gets the off-balance sensation she does have a hot feeling in the back of her head but denies having a headache. Patient states she had a similar feeling when she was on a boat and [place] several years ago. Patient had a COVID-19 infection 2 weeks prior. She states that she only has a occasional cough but otherwise her other symptoms have improved. She denied fever, chills, chest pain, shortness of breath,, vomiting, diarrhea, myalgias arthralgias. Related Data Home Medications ?Medication ?Instructions ?Recorded ?Confirmed amlodipine 10 mg tablet 10 mg PO DAILY 03/11/22 09/08/22 Previous Rx's ?Medication ?Instructions ?Recorded amlodipine 10 mg tablet 10 mg PO DAILY 90 days #90 tabs 01/25/24 meclizine 25 mg tablet (Dramamine 25 mg PO TID PRN dizziness #20 tabs 01/25/24 Less Drowsy) Allergies Allergy/AdvReac Type Severity Reaction Status Date / Time No Known Allergies Allergy Verified 01/25/24 12:05 [No Known Allergies*] Review of Systems 2 Review of Systems: Yes all other systems are reviewed and are negative PMFSH Past Medical History Medical History No known health problems Uncontrolled hypertension Surgical History No pertinent past surgical history Family History Family History Father No problems noted. Mother Heart disease Social History Social History Patient Tobacco Use Status: Current someday Tobacco user Advance Directives: No Do you have a plan to hurt others: No Plan Physical Exam ED Vital Signs: Vital Signs - 24 hr 01/25/24 18:58 01/25/24 19:53 Temperature 98.4 F 97.7 F Pulse Rate 88 84 Respiratory Rate 16 16 Blood Pressure 148/67 H 136/61 Pulse Oximetry 95 97 Oxygen Delivery Method Room Air Room Air BMI result Body Mass Index 43.5 Vital signs revealed an elevated heart rate of 102 and an elevated blood pressure of 155/81. Initial O2 saturation on room air was 87% which was low however without treatment repeat O2 saturations have been normal with most rate son 1 being 95% on room air. Exam: General: Awake, alert in no distress Head: Normocephalic, atraumatic EENT: PERRL, lateral nystagmus, Lids normal, sclera normal, conjunctiva normal, nose normal , ears normal, throat without erythema or exudates Neck: Supple, no adenopathy Lung: breath sounds symmetric, no wheezing, rales or rhonchi Chest: symmetric movement, nontender Heart: regular rate and rhythm, normal S1, S2 no murmurs or rubs Abdomen: soft, non-tender, nondistended, normal bowel sounds Back: no vertebral tenderness, no CVAT Extremities: no deformities, moves all extremities symmetrically Neuro: General: Awake, alert, oriented, normal speech Cranial nerves: Cranial nerves 2-12 are intact Strength: 5/5 symmetric Cerebellar: Good [id number]-oyup-to-finger, good rapid finger movement, normal heel to dumas. Gait normal. Patient does have inducible vertigo with position change Psych: Pleasant, cooperative Course Course Course Narrative: This is a rapid medical exam performed by Lexy Hernandez PA-C. The patient is a 58-year-old female with history of uncontrolled hypertension and tobacco abuse. She presents with shortness of breath, incidentally, she tested positive for COVID last week. Patient ate pesto and thought she was having an allergic reaction. On exam, her lungs are clear to auscultation, there was no wheezing there is also no stridor. Her oropharynx is patent, there is no angioedema, the tongue is not swollen. Her oxygen has been between 88 and 91% on room air. Her presentation is likely sequelae from recent COVID diagnosis. However given her cardiac history, We will be obtaining screening labs, BNP, troponin, chest x- ray and EKG. She will return to the weight room pending her assessment. Medications Administered Discontinued Medications Generic Name Dose Route Start Last Admin Trade Name Joseq PRN Reason Stop Dose Admin Meclizine HCl 25 mg 01/25/24 19:36 01/25/24 19:41 Meclizine Hcl 25 Mg Tablet PO 01/25/24 19:37 25 mg ONCE STA Administration Medical Decision Making Medical Decision Making [facility] Narrative: 58-year-old female with a history of hypertension who presents emergency department for evaluation of nausea and feeling off balance. Symptoms started suddenly at 11:00 hours while she was eating. She states that she has had several episodes since then which are precipitated with head movement and resolve if she stays still. Patient had a COVID infection 2 weeks prior with symptoms almost completely resolving over the last week with a persistent cough only. Vital signs revealed an elevated heart rate and elevated blood pressure. Cerebellar exam was normal. Patient had nystagmus with inducible vertigo with position change. Differential diagnosis: ?Includes but is not limited to cerebellar stroke, positional vertigo, anemia, electrolyte abnormalities, dehydration, volume depletion Course: 19:45 My interpretation patient's laboratory evaluation is as follows: CBC was normal. CMP was normal except for an elevated glucose of 171 elevated ALT of 32-I think this is noncontributory to her presentation Patient's presentation physical examination is consistent with benign positional vertigo and I did discuss this with the patient and the patient's family. The patient was treated with meclizine 25 mg orally here in the emergency department she was prescribed meclizine 25 mg 3 times a day for the next 3 days then as needed for dizziness. She was given printed and verbal instructions on positional vertigo and discharged home. Admission/Observation Consideration of admission/observation: Escalation of care including admission/observation considered (Yes) Lab Data [facility] Lab Attestation statement: I reviewed the patient's lab results. 01/25/24 12:47 01/25/24 12:47 Labs: Lab Results 01/25/24 Range/Units 12:47 WBC 7.3 (4.8-10.8) X10*3/uL RBC 4.90 (4.20-5.50) X10*6/uL Hgb 14.4 (12.0-16.0) g/dl Hct 43.5 (37.0-47.0) % MCV 88.8 (80.0-98.0) fL MCH 29.4 (27.0-33.0) pg MCHC 33.1 (31.0-35.0) g/dl RDW 14.1 (11.0-16.0) % Plt Count 259 (160-400) X10*3/uL MPV 10.2 (9.4-12.3) fL Immature Gran % (Auto) 0.8 H (0.0-0.4) % Neut % (Auto) 59.9 (45-73) % Lymph % (Auto) 30.0 (20-40) % [place] % (Auto) 7.1 (2-11) % Eos % (Auto) 1.4 (0-4) % Baso % (Auto) 0.8 (0-2) % Lymph # (Auto) 2.2 (1.2-4.9) X10*3/uL [place] # (Auto) 0.5 (0.1-1.2) X10*3/uL Eos # (Auto) 0.1 (0.0-0.4) X10*3/uL Baso # (Auto) 0.1 (0.0-0.2) X10*3/uL Abs Immat Gran (auto) 0.06 H (0.00-0.03) X10*3/uL Absolute Neuts (auto) 4.4 (2.0-8.3) x10*3/uL Absolute Nucleated RBC 0.000 (0.0-0.012) X10*3/uL Nucleated RBC % (auto) 0.0 (0.0-0.2) /100WBC Sodium 139 (135-145) mmol/L Potassium 4.1 (3.3-5.1) mmol/L Chloride 105 (96-108) mmol/L Carbon Dioxide 26 (22-29) mmol/L Anion Gap 12 (12-20) BUN 16 (9-16) mg/dL Creatinine 0.66 (0.5-1.4) mg/dL Estim Creat Clear Calc 103.2 Estimated GFR > 60 Random Glucose 171 H (60-115) mg/dL Calcium 9.4 (8.4-10.2) mg/dL Magnesium 2.1 (1.6-2.6) mg/dL Total Bilirubin 0.6 (0.0-1.0) mg/dL AST 18 (5-31) U/L ALT 32 H (0-31) U/L Alkaline Phosphatase 89 (39-117) U/L Troponin I High Sens < 2.7 (<3.5-17.0) ng/L B-Natriuretic Peptide 16 (<100) pg/mL Total Protein 6.9 (6.5-8.0) g/dL Albumin 4.1 (3.5-5.0) g/dL Independent Interpretation I performed an independent interpretation of an: Plain X-Ray Interpretation: My interpretation of the patient's two view chest x-ray is as follows: No acute disease Radiology Impression Discussion of test interpretation with radiology: I have reviewed the radiologist's reading. Radiologist Impression: XR chest 2V IMPRESSION: Low lung volumes, bibasilar atelectasis. Vascular crowding, mild failure not excluded. Dictated By: Nanette Chairez MD Independent Historian Clinical information obtained from an independent historian. History obtained from or confirmed by: Other (Son) Prescription Management I considered prescription management with: Other (Anti vertigo medication- meclizine) Chronic Conditions Patient?s care impacted by: Hypertension Discharge Plan Discharge Clinical Impression: Benign paroxysmal positional vertigo Patient Disposition: Home, Self-Care Instructions: Benign Paroxysmal Positional Vertigo (ED) Additional Instructions: You had a complete blood count and comprehensive metabolic panel which was unremarkable. Your symptoms are consistent with positional vertigo which can often start after someone has a viral infection. Take meclizine 25 mg pills, 1 pill 3 times a day for the next 3 days for dizziness then as needed for dizziness. ?This medication will make you sleepy. ?Do not drive or work while taking this medication. Follow-up with your doctor in 2 days. Please return to the emergency department if your symptoms get worse or if you develop any symptoms that are concerning to you. Prescriptions: New meclizine [Dramamine Less Drowsy] 25 mg tablet 25 mg PO TID PRN (Reason: dizziness) Qty: 20 0RF amlodipine 10 mg tablet 10 mg PO DAILY 90 Days Qty: 90 0RF No Action amlodipine 10 mg tablet 10 mg PO DAILY Interventions: ED Discharge Assessment Last Done: 01/25/24 19:53 Discharge Date/Time: 01/25/24 19:54 Print Language: [place]
[2024-01-25 12:53] LABS: MANUAL DIFF FLAG NO
[2024-01-25 12:56] LABS: Basophils Absolute Auto 0.1 X10*3/uL (0.0-0.2); Basophils Percent Auto 0.8 % (0-2); Eosinophils Absolute Auto 0.1 X10*3/uL (0.0-0.4); Eosinophils Percent Auto 1.4 % (0-4); Hematocrit 43.5 % (37.0-47.0); Hemoglobin 14.4 g/dl (12.0-16.0); Imm Gran Abs Auto 0.06 X10*3/uL (0.00-0.03); Imm Gran Pct Auto 0.8 % (0.0-0.4); Lymphocytes Absolute Auto 2.2 X10*3/uL (1.2-4.9); Mean Corpuscular HGB Conc 33.1 g/dl (31.0-35.0); Mean Corpuscular Hemoglobin 29.4 pg (27.0-33.0); Mean Corpuscular Volume 88.8 fL (80.0-98.0); Mean Platelet Volume 10.2 fL (9.4-12.3); Monocytes Absolute Auto 0.5 X10*3/uL (0.1-1.2); Monocytes Percent Auto 7.1 % (2-11); Neutrophils Absolute Auto 4.4 x10*3/uL (2.0-8.3); Neutrophils Percent Auto 59.9 % (45-73); Platelet Count 259 X10*3/uL (160-400); Red Cell Distribution Width 14.1 % (11.0-16.0); White Blood Count 7.3 X10*3/uL (4.8-10.8)
[2024-01-25 13:19] LABS: Alanine Aminotransferase 32 U/L (0-31); Albumin Level 4.1 g/dL (3.5-5.0); Alkaline Phosphatase 89 U/L (39-117); Anion Gap 12 (12-20); Aspartate Amino Transferase 18 U/L (5-31); Bilirubin Total 0.6 mg/dL (0.0-1.0); Blood Urea Nitrogen 16 mg/dL (9-16); Calcium 9.4 mg/dL (8.4-10.2); Carbon Dioxide 26 mmol/L (22-29); Chloride 105 mmol/L (96-108); Creatinine Clr Calc Pharmacy 103.2; Estimated Glomerular Filt Rate > 60; Glucose Random 171 mg/dL (60-115); Magnesium 2.1 mg/dL (1.6-2.6); Potassium 4.1 mmol/L (3.3-5.1); Sodium 139 mmol/L (135-145); Total Protein 6.9 g/dL (6.5-8.0)
[2024-01-25 13:22] LABS: B Type Natriuretic Peptide 16 pg/mL (<100)
[2024-01-25 13:27] LABS: Troponin-I High Sensitivity < 2.7 ng/L (<3.5-17.0)
[2024-01-25 18:58] VITALS: BP 148/67; PULSE 88; RESP 16; TEMP 36.9; O2SAT 95
[2024-01-25] MEDS: Meclizine HCl 25 MG TABLET PO (19:41)
[2024-01-25 19:53] VITALS: BP 136/61; PULSE 84; RESP 16; TEMP 36.5; O2SAT 97
== END 2024-01-25 19:54 | disposition home or self-care (01) ==
PROVIDERS: Physician Assistant Medical; Emergency Provider Emergency Medicine Emergency Medical Services; PCP Physician Assistant
DX: H81.10 Benign paroxysmal vertigo, unspecified ear (principal); R06.02 Shortness of breath; R05.9 Cough, unspecified; F17.200 Nicotine dependence, unspecified, uncomplicated; Z79.899 Other long term (current) drug therapy
CPT/HCPCS: 36415; 71046; 80053; 83735; 83880; 84484; 85025; 99283